=== PATIENT | male | born 1980 | race Caucasian/White ===

== ENCOUNTER 2021-06-18 11:24 | Inpatient (IN) | payer MEDICAID, OTHER ==
[2021-06-18 12:35] LABS: #Basophils 0.1 thou/uL (0.0-0.2); #Eosinphils 0.1 thou/uL (0.0-0.7); #Monocytes 0.8 thou/uL (0.11-0.59); %Basophils 0.9 % (0.0-1.0); %Eosinophils 1.2 % (0.0-10.0); %Lymphocytes 19.9 % (21.0-51.0); %Monocytes 8.3 % (0.0-10.0); %Neutrophils 69.7 % (42.0-75.0); Hemoglobin 12.9 g/dL (14.0-18.0); Mean Corpuscular Volume 84.4 fL (78.0-98.0); Mean Platelet Volume 7.8 fL (7.4-10.4); Platelet Count 340 thou/uL (130-400); RBC Distribution Width 15.6 % (11.5-14.5); Red Blood Cell (RBC) Count 4.78 mill/uL (4.70-6.10)
[2021-06-18] MEDS ORDERED: Furosemide 40 MG/4 ML VIAL ONE (12:42)
[2021-06-18 12:57] LABS: ALT (SGPT) 41 U/L (8-55); AST (SGOT) 31 U/L (5-34); Albumin 3.5 g/dL (3.5-5.0); Alkaline Phosphatase 340 U/L (40-110); Anion Gap 15 mmol/L (10-20); BUN (Urea Nitrogen) 29 mg/dL (8.9-20.6); Bilirubin, Total 1.9 mg/dL (0.2-1.2); Calc. Creatinine Clearance 0 mL/min (70-130); Calcium 9.1 mg/dL (7.8-10.44); Carbon Dioxide 29 mmol/L (22-29); Chloride 95 mmol/L (98-107); Globulin 3.9 g/dL (2.4-3.5); Glucose 113 mg/dL (70-105); Protein, Total 7.4 g/dL (6.0-8.3); Sodium 135 mmol/L (136-145)
[2021-06-18 13:20] LABS: CKMB 1.5 ng/mL (0-6.6)
[2021-06-18] MEDS ORDERED: Ondansetron PF 4 MG/2 ML Vial IVP PRN (14:24)
[2021-06-18] MEDS ORDERED: Ondansetron ODT 4 MG TAB PO PRN (14:24)
[2021-06-18] MEDS ORDERED: Acetaminophen 325 MG TAB PO PRN (14:24)
[2021-06-18] MEDS ORDERED: Senokot S 8.6-50 MG TAB PO PRN (14:24)
[2021-06-18] MEDS ORDERED: Nitroglycerin 0.4 MG TAB (25 Tab Bottle) SL PRN (14:36)
[2021-06-18 15:42] LABS: Hemoglobin A1c 5.9 % (4.0-6.0)
[2021-06-18 15:47] LABS: INR-International Normal Ratio 1.3; PTT 32.1 sec (22.9-36.1); Prothrombin Time 16.1 sec (12.0-14.7)
[2021-06-18 16:04] LABS: Magnesium 1.8 mg/dL (1.6-2.6)
[2021-06-18 16:18] LABS: CKMB 1.7 ng/mL (0-6.6)
[2021-06-18 18:53] LABS: Bacteria/HPF None Seen HPF (None Seen); Bilirubin Negative (Negative); Blood, Urine 1+ (Negative); Clarity Clear (Clear); Glucose, Urine (Dipstick) Normal (Negative); Ketone, Urine Negative (Negative); Leukocyte Negative Leu/uL (Negative); Nitrite Negative (Negative); Protein, Urine (Dipstick) 30 mg/dL (Neg-Trace); Specific Gravity, Urine 1.009 (1.002-1.036); Squamous Epithelial None Seen HPF (0-3); Urobilinogen 3 mg/dL (Less than 2); WBC/HPF 0-3 HPF (0-3); pH, Urine 6.5 (5.0-9.0)
[2021-06-18 18:59] LABS: SARS-CoV-2 NAA Rapid Test Not Detected (NotDetected)
[2021-06-18 19:00] LABS: Amphetamine Not Detected (NotDetected); Barbiturates Screen Not Detected (NotDetected); Benzodiazepine Screen Not Detected (NotDetected); Cocaine Metabolite Screen Not Detected (NotDetected); Methadone Not Detected (NotDetected); Methamphetamine Not Detected (NotDetected); Opiate Screen Not Detected (NotDetected); Oxycodone Screen Not Detected (NotDetected); Phencyclidine (PCP) Not Detected (NotDetected); THC/Cannabinoid Screen Not Detected (NotDetected); Tricyclic Screen Not Detected (NotDetected)
[2021-06-18 21:45] LABS: CKMB 1.4 ng/mL (0-6.6)
[2021-06-18] MEDS: Famotidine 20 MG TAB PO SCH (22:45)
[2021-06-19 05:13] LABS: #Basophils 0.1 thou/uL (0.0-0.2); #Eosinphils 0.1 thou/uL (0.0-0.7); #Lymphocytes 2.2 thou/uL (1.20-3.40); #Monocytes 0.9 thou/uL (0.11-0.59); #Neutrophils 6.7 thou/uL (1.40-6.50); %Basophils 0.6 % (0.0-1.0); %Eosinophils 0.8 % (0.0-10.0); %Lymphocytes 22.3 % (21.0-51.0); %Monocytes 8.8 % (0.0-10.0); %Neutrophils 67.6 % (42.0-75.0); Hemoglobin 12.3 g/dL (14.0-18.0); Mean Corpuscular Hemoglobin 27.2 pg (27.0-31.0); Platelet Count 328 thou/uL (130-400); RBC Distribution Width 15.6 % (11.5-14.5); Red Blood Cell (RBC) Count 4.53 mill/uL (4.70-6.10); White Blood Cell (WBC) Count 9.9 thou/uL (4.8-10.8)
[2021-06-19 05:27] LABS: Anion Gap 19 mmol/L (10-20); BUN (Urea Nitrogen) 26 mg/dL (8.9-20.6); Calc. Creatinine Clearance 79 mL/min (70-130); Carbon Dioxide 26 mmol/L (22-29); Cardiac Risk 3.5 (Less than 4.5); Chloride 94 mmol/L (98-107); Cholesterol 116 mg/dl (< 200 Desired); Glucose 96 mg/dL (70-105); HDL Cholesterol 33 mg/dL (>60 Neg Risk); LDL Cholesterol, Calculated 69 mg/dL; Potassium 4.4 mmol/L (3.5-5.1); Sodium 135 mmol/L (136-145); Triglycerides 71 mg/dL (Less than 150)
[2021-06-19] MEDS ORDERED: Furosemide 40 MG/4 ML VIAL SLOW IVP SCH (06:00)
[2021-06-19] MEDS: Furosemide 40 MG/4 ML VIAL SLOW IVP SCH ×2 (06:02→15:08)
[2021-06-19] MEDS ORDERED: Carvedilol 3.125 MG TAB PO SCH ×2 (08:00→09:00)
[2021-06-19] MEDS: Enoxaparin Sodium 40 MG/0.4 ML SYRINGE SC SCH (09:16)
[2021-06-19] MEDS: Famotidine 20 MG TAB PO SCH ×2 (09:16→20:15)
[2021-06-19] MEDS: Carvedilol 3.125 MG TAB PO SCH (17:25)
[2021-06-20] MEDS: Furosemide 40 MG/4 ML VIAL SLOW IVP SCH ×2 (06:15→14:31)
[2021-06-20] MEDS: Famotidine 20 MG TAB PO SCH ×2 (08:48→20:42)
[2021-06-20] MEDS: Enoxaparin Sodium 40 MG/0.4 ML SYRINGE SC SCH (08:49)
[2021-06-20] MEDS: Carvedilol 3.125 MG TAB PO SCH ×2 (08:49→17:16)
[2021-06-20 10:08] LABS: Anion Gap 17 mmol/L (10-20); BUN (Urea Nitrogen) 34 mg/dL (8.9-20.6); Calc. Creatinine Clearance 75 mL/min (70-130); Calcium 9.2 mg/dL (7.8-10.44); Carbon Dioxide 29 mmol/L (22-29); Chloride 95 mmol/L (98-107); Glucose 97 mg/dL (70-105); Potassium 4.1 mmol/L (3.5-5.1); Sodium 137 mmol/L (136-145)
[2021-06-21 06:07] LABS: Anion Gap 16 mmol/L (10-20); BUN (Urea Nitrogen) 30 mg/dL (8.9-20.6); Calc. Creatinine Clearance 81 mL/min (70-130); Calcium 8.8 mg/dL (7.8-10.44); Carbon Dioxide 29 mmol/L (22-29); Chloride 95 mmol/L (98-107); Glucose 101 mg/dL (70-105); Potassium 4.1 mmol/L (3.5-5.1); Sodium 136 mmol/L (136-145)
[2021-06-21] MEDS: Furosemide 40 MG/4 ML VIAL SLOW IVP SCH ×2 (06:08→13:53)
[2021-06-21] MEDS: Carvedilol 3.125 MG TAB PO SCH ×2 (09:31→17:02)
[2021-06-21] MEDS: Famotidine 20 MG TAB PO SCH ×2 (09:32→21:01)
[2021-06-21] MEDS: Enoxaparin Sodium 40 MG/0.4 ML SYRINGE SC SCH (09:32)
[2021-06-22 05:24] LABS: Anion Gap 15 mmol/L (10-20); BUN (Urea Nitrogen) 29 mg/dL (8.9-20.6); Calc. Creatinine Clearance 89 mL/min (70-130); Calcium 8.9 mg/dL (7.8-10.44); Carbon Dioxide 30 mmol/L (22-29); Chloride 93 mmol/L (98-107); Glucose 103 mg/dL (70-105); Sodium 134 mmol/L (136-145)
[2021-06-22] MEDS: Furosemide 40 MG/4 ML VIAL SLOW IVP SCH ×2 (05:56→14:30)
[2021-06-22] MEDS: Enoxaparin Sodium 40 MG/0.4 ML SYRINGE SC SCH (08:13)
[2021-06-22] MEDS: Carvedilol 3.125 MG TAB PO SCH ×2 (08:13→17:30)
[2021-06-22] MEDS: Famotidine 20 MG TAB PO SCH ×2 (08:13→21:21)
[2021-06-22 09:24] LABS: Magnesium 1.8 mg/dL (1.6-2.6)
[2021-06-22] MEDS ORDERED: Metolazone 5 MG TAB PO SCH (14:00)
[2021-06-22] MEDS ORDERED: Electrolyte Replacement Protocol 1 EACH FS SCH (17:15)
[2021-06-22] MEDS ORDERED: Magnesium Sulfate 2 GM in Sodium Chloride 0.9% 100 ML IVPB SCH (17:15)
[2021-06-23 05:34] LABS: Phosphorus 4.2 mg/dL (2.3-4.7)
[2021-06-23 05:37] LABS: Anion Gap 14 mmol/L (10-20); BUN (Urea Nitrogen) 27 mg/dL (8.9-20.6); Calc. Creatinine Clearance 92 mL/min (70-130); Calcium 8.9 mg/dL (7.8-10.44); Carbon Dioxide 30 mmol/L (22-29); Chloride 92 mmol/L (98-107); Glucose 95 mg/dL (70-105); Potassium 3.9 mmol/L (3.5-5.1); Sodium 132 mmol/L (136-145)
[2021-06-23] MEDS: Furosemide 40 MG/4 ML VIAL SLOW IVP SCH ×2 (06:18→14:38)
[2021-06-23] MEDS: Famotidine 20 MG TAB PO SCH ×2 (08:11→23:23)
[2021-06-23] MEDS: Aspirin 81 mg Enteric Coated Tablet PO SCH (08:11)
[2021-06-23] MEDS: Carvedilol 3.125 MG TAB PO SCH ×2 (08:11→17:30)
[2021-06-23] MEDS: Enoxaparin Sodium 40 MG/0.4 ML SYRINGE SC SCH (08:11)
[2021-06-23] MEDS ORDERED: Famotidine 20 MG TAB PO SCH (09:00)
[2021-06-23] MEDS ORDERED: Magnesium 2 GM/50 ML 2 GM in Premix Bag 1 BAG IVPB SCH (09:00)
[2021-06-24 05:23] LABS: Anion Gap 15 mmol/L (10-20); BUN (Urea Nitrogen) 25 mg/dL (8.9-20.6); Calc. Creatinine Clearance 95 mL/min (70-130); Calcium 9.2 mg/dL (7.8-10.44); Carbon Dioxide 32 mmol/L (22-29); Chloride 93 mmol/L (98-107); Glucose 95 mg/dL (70-105); Magnesium 2.1 mg/dL (1.6-2.6); Potassium 3.8 mmol/L (3.5-5.1); Sodium 136 mmol/L (136-145)
[2021-06-24] MEDS: Furosemide 40 MG/4 ML VIAL SLOW IVP SCH ×2 (06:05→14:27)
[2021-06-24] MEDS: Enoxaparin Sodium 40 MG/0.4 ML SYRINGE SC SCH (07:39)
[2021-06-24] MEDS: Famotidine 20 MG TAB PO SCH ×2 (07:39→22:08)
[2021-06-24] MEDS: Aspirin 81 mg Enteric Coated Tablet PO SCH (07:40)
[2021-06-24] MEDS: Carvedilol 3.125 MG TAB PO SCH ×2 (07:40→17:11)
[2021-06-24] MEDS ORDERED: Furosemide 40 MG/4 ML VIAL SLOW IVP SCH (20:00)
[2021-06-25] MEDS: Furosemide 40 MG/4 ML VIAL SLOW IVP SCH (05:05)
[2021-06-25 06:04] LABS: Anion Gap 15 mmol/L (10-20); BUN (Urea Nitrogen) 26 mg/dL (8.9-20.6); Calc. Creatinine Clearance 82 mL/min (70-130); Calcium 9.5 mg/dL (7.8-10.44); Carbon Dioxide 35 mmol/L (22-29); Chloride 93 mmol/L (98-107); Glucose 87 mg/dL (70-105); Magnesium 2.2 mg/dL (1.6-2.6); Potassium 3.7 mmol/L (3.5-5.1); Sodium 139 mmol/L (136-145)
[2021-06-25] MEDS: Enoxaparin Sodium 40 MG/0.4 ML SYRINGE SC SCH (10:42)
[2021-06-25] MEDS: Famotidine 20 MG TAB PO SCH ×2 (10:43→20:52)
[2021-06-25] MEDS: Carvedilol 3.125 MG TAB PO SCH ×2 (10:43→17:10)
[2021-06-25] MEDS: Aspirin 81 mg Enteric Coated Tablet PO SCH (10:43)
[2021-06-25] MEDS ORDERED: Potassium Chloride 20 MEQ TAB PO SCH (12:00)
[2021-06-25] MEDS ORDERED: Furosemide 40 MG/4 ML VIAL SLOW IVP SCH (20:00)
[2021-06-26 05:15] LABS: Anion Gap 14 mmol/L (10-20); BUN (Urea Nitrogen) 27 mg/dL (8.9-20.6); Calc. Creatinine Clearance 85 mL/min (70-130); Calcium 8.9 mg/dL (7.8-10.44); Carbon Dioxide 34 mmol/L (22-29); Chloride 95 mmol/L (98-107); Glucose 102 mg/dL (70-105); Sodium 139 mmol/L (136-145)
[2021-06-26] MEDS ORDERED: Magnesium 2 GM/50 ML 2 GM in Premix Bag 1 BAG IVPB SCH (07:00)
[2021-06-26] MEDS: Enoxaparin Sodium 40 MG/0.4 ML SYRINGE SC SCH (08:19)
[2021-06-26] MEDS: Famotidine 20 MG TAB PO SCH ×2 (08:19→20:31)
[2021-06-26] MEDS: Carvedilol 3.125 MG TAB PO SCH ×2 (08:19→16:52)
[2021-06-26] MEDS: Aspirin 81 mg Enteric Coated Tablet PO SCH (08:19)
[2021-06-26] MEDS ORDERED: Furosemide 20 MG/2 ML VIAL SLOW IVP SCH (09:00)
[2021-06-26] MEDS ORDERED: Potassium Chloride 20 MEQ TAB PO SCH (18:00)
[2021-06-26] MEDS ORDERED: Furosemide 40 MG/4 ML VIAL SLOW IVP SCH (18:00)
[2021-06-27 05:07] LABS: Anion Gap 12 mmol/L (10-20); BUN (Urea Nitrogen) 23 mg/dL (8.9-20.6); Calc. Creatinine Clearance 93 mL/min (70-130); Calcium 9.2 mg/dL (7.8-10.44); Carbon Dioxide 33 mmol/L (22-29); Chloride 97 mmol/L (98-107); Glucose 91 mg/dL (70-105); Magnesium 2.3 mg/dL (1.6-2.6); Potassium 4.4 mmol/L (3.5-5.1); Sodium 138 mmol/L (136-145)
[2021-06-27] MEDS: Furosemide 40 MG/4 ML VIAL SLOW IVP SCH ×2 (05:16→13:59)
[2021-06-27] MEDS: Enoxaparin Sodium 40 MG/0.4 ML SYRINGE SC SCH (08:41)
[2021-06-27] MEDS: Aspirin 81 mg Enteric Coated Tablet PO SCH (08:42)
[2021-06-27] MEDS: Famotidine 20 MG TAB PO SCH ×2 (08:42→21:19)
[2021-06-27] MEDS: Carvedilol 3.125 MG TAB PO SCH ×2 (08:42→17:39)
[2021-06-27 11:08] VITALS: BMI 27.3
[2021-06-27 12:04] LABS: SARS-CoV-2 PCR by NAA Not Detected (NotDetected)
[2021-06-27] MEDS ORDERED: Potassium Chloride 20 MEQ TAB PO SCH (18:00)
[2021-06-27] MEDS ORDERED: Furosemide 40 MG/4 ML VIAL SLOW IVP SCH (20:00)
[2021-06-28 05:09] LABS: BUN (Urea Nitrogen) 23 mg/dL (8.9-20.6); Calc. Creatinine Clearance 80 mL/min (70-130); Calcium 9.7 mg/dL (7.8-10.44); Glucose 83 mg/dL (70-105)
[2021-06-28 05:18] LABS: Anion Gap 17 mmol/L (10-20); Carbon Dioxide 31 mmol/L (22-29); Chloride 96 mmol/L (98-107); Potassium 4.5 mmol/L (3.5-5.1); Sodium 139 mmol/L (136-145)
[2021-06-28] MEDS: Furosemide 40 MG/4 ML VIAL SLOW IVP SCH ×2 (06:19→13:58)
[2021-06-28] MEDS: Carvedilol 3.125 MG TAB PO SCH ×2 (08:32→16:23)
[2021-06-28] MEDS: Enoxaparin Sodium 40 MG/0.4 ML SYRINGE SC SCH (08:32)
[2021-06-28] MEDS: Famotidine 20 MG TAB PO SCH ×2 (08:32→20:36)
[2021-06-28] MEDS: Aspirin 81 mg Enteric Coated Tablet PO SCH (08:32)
[2021-06-28] MEDS: Potassium Chloride 20 MEQ TAB PO SCH (16:22)
[2021-06-28] MEDS ORDERED: Furosemide 20 MG/2 ML VIAL SLOW IVP SCH (20:00)
[2021-06-29] MEDS: Furosemide 40 MG/4 ML VIAL SLOW IVP SCH ×2 (05:28→14:44)
[2021-06-29 05:37] LABS: Anion Gap 14 mmol/L (10-20); BUN (Urea Nitrogen) 27 mg/dL (8.9-20.6); Calc. Creatinine Clearance 81 mL/min (70-130); Calcium 9.8 mg/dL (7.8-10.44); Carbon Dioxide 33 mmol/L (22-29); Chloride 96 mmol/L (98-107); Glucose 102 mg/dL (70-105); Potassium 4.3 mmol/L (3.5-5.1); Sodium 139 mmol/L (136-145)
[2021-06-29] MEDS: Enoxaparin Sodium 40 MG/0.4 ML SYRINGE SC SCH (08:55)
[2021-06-29] MEDS: Famotidine 20 MG TAB PO SCH ×2 (08:55→20:27)
[2021-06-29] MEDS: Aspirin 81 mg Enteric Coated Tablet PO SCH (08:55)
[2021-06-29] MEDS: Potassium Chloride 20 MEQ TAB PO SCH ×2 (08:55→17:37)
[2021-06-29] MEDS: Empagliflozin 10 MG TAB PO SCH (08:56)
[2021-06-29] MEDS: Carvedilol 3.125 MG TAB PO SCH ×2 (12:06→17:37)
[2021-06-30 05:10] LABS: Anion Gap 15 mmol/L (10-20); BUN (Urea Nitrogen) 28 mg/dL (8.9-20.6); Calc. Creatinine Clearance 80 mL/min (70-130); Calcium 9.3 mg/dL (7.8-10.44); Carbon Dioxide 32 mmol/L (22-29); Chloride 96 mmol/L (98-107); Glucose 82 mg/dL (70-105); Potassium 4.2 mmol/L (3.5-5.1); Sodium 139 mmol/L (136-145)
[2021-06-30] MEDS: Furosemide 40 MG/4 ML VIAL SLOW IVP SCH ×2 (05:17→13:44)
[2021-06-30] MEDS: Enoxaparin Sodium 40 MG/0.4 ML SYRINGE SC SCH (07:54)
[2021-06-30] MEDS: Carvedilol 3.125 MG TAB PO SCH ×2 (07:55→16:46)
[2021-06-30] MEDS: Empagliflozin 10 MG TAB PO SCH (07:55)
[2021-06-30] MEDS: Potassium Chloride 20 MEQ TAB PO SCH ×2 (07:56→16:30)
[2021-06-30] MEDS: Famotidine 20 MG TAB PO SCH ×2 (07:56→22:02)
[2021-06-30] MEDS: Aspirin 81 mg Enteric Coated Tablet PO SCH (07:56)
[2021-06-30 10:30] LABS: HIV (1/2) Antibody/Antigen Non-Reactive (NonReactive); HIV 1/2 INDEX 0.13 S/CO (<1.00)
[2021-07-01] MEDS: Furosemide 40 MG/4 ML VIAL SLOW IVP SCH (05:30)
[2021-07-01 05:49] LABS: Anion Gap 12 mmol/L (10-20); BUN (Urea Nitrogen) 32 mg/dL (8.9-20.6); Calc. Creatinine Clearance 85 mL/min (70-130); Calcium 9.4 mg/dL (7.8-10.44); Carbon Dioxide 31 mmol/L (22-29); Chloride 99 mmol/L (98-107); Glucose 93 mg/dL (70-105); Potassium 4.2 mmol/L (3.5-5.1); Sodium 138 mmol/L (136-145)
[2021-07-01] MEDS: Carvedilol 3.125 MG TAB PO SCH ×2 (07:02→16:31)
[2021-07-01] MEDS: Aspirin 81 mg Enteric Coated Tablet PO SCH (07:02)
[2021-07-01] MEDS: Famotidine 20 MG TAB PO SCH ×2 (07:03→21:23)
[2021-07-01] MEDS: Empagliflozin 10 MG TAB PO SCH (09:57)
[2021-07-01] MEDS: Potassium Chloride 20 MEQ TAB PO SCH ×2 (09:58→16:31)
[2021-07-01] MEDS ORDERED: Enoxaparin Sodium 40 MG/0.4 ML SYRINGE SC SCH (10:00)
[2021-07-01] MEDS ORDERED: Furosemide 40 MG/4 ML VIAL SLOW IVP SCH ×2 (14:00→20:00)
[2021-07-01] MEDS ORDERED: Potassium Chloride 20 MEQ TAB PO SCH (20:00)
[2021-07-02 05:29] LABS: Anion Gap 14 mmol/L (10-20); BUN (Urea Nitrogen) 36 mg/dL (8.9-20.6); Calc. Creatinine Clearance 71 mL/min (70-130); Calcium 9.6 mg/dL (7.8-10.44); Carbon Dioxide 31 mmol/L (22-29); Chloride 97 mmol/L (98-107); Glucose 97 mg/dL (70-105); Potassium 4.1 mmol/L (3.5-5.1); Sodium 138 mmol/L (136-145)
[2021-07-02] MEDS: Carvedilol 3.125 MG TAB PO SCH ×2 (06:40→16:13)
[2021-07-02] MEDS: Famotidine 20 MG TAB PO SCH ×2 (06:40→20:45)
[2021-07-02] MEDS: Aspirin 81 mg Enteric Coated Tablet PO SCH (07:14)
[2021-07-02] MEDS: Empagliflozin 10 MG TAB PO SCH (09:43)
[2021-07-02] MEDS: Potassium Chloride 20 MEQ TAB PO SCH (09:43)
[2021-07-02] MEDS: Enoxaparin Sodium 40 MG/0.4 ML SYRINGE SC SCH (09:44)
[2021-07-02] MEDS: Furosemide 40 MG TAB PO SCH (14:51)
[2021-07-02] MEDS: Sacubitril 49 MG/Valsartan 51 MG TABLET PO SCH (20:45)
[2021-07-03 05:44] LABS: #Basophils 0.1 thou/uL (0.0-0.2); #Eosinphils 0.2 thou/uL (0.0-0.7); #Lymphocytes 3.2 thou/uL (1.20-3.40); #Monocytes 0.9 thou/uL (0.11-0.59); #Neutrophils 3.5 thou/uL (1.40-6.50); %Basophils 0.9 % (0.0-1.0); %Eosinophils 2.2 % (0.0-10.0); %Lymphocytes 41.1 % (21.0-51.0); %Monocytes 11.4 % (0.0-10.0); %Neutrophils 44.3 % (42.0-75.0); Hemoglobin 14.1 g/dL (14.0-18.0); Mean Corpuscular Hemoglobin 26.4 pg (27.0-31.0); Mean Platelet Volume 7.5 fL (7.4-10.4); Platelet Count 298 thou/uL (130-400); RBC Distribution Width 15.8 % (11.5-14.5); Red Blood Cell (RBC) Count 5.35 mill/uL (4.70-6.10); White Blood Cell (WBC) Count 7.9 thou/uL (4.8-10.8)
[2021-07-03 06:38] LABS: Anion Gap 12 mmol/L (10-20); BUN (Urea Nitrogen) 37 mg/dL (8.9-20.6); Calc. Creatinine Clearance 84 mL/min (70-130); Calcium 9.8 mg/dL (7.8-10.44); Carbon Dioxide 32 mmol/L (22-29); Chloride 96 mmol/L (98-107); Glucose 93 mg/dL (70-105); Potassium 4.2 mmol/L (3.5-5.1); Sodium 136 mmol/L (136-145)
[2021-07-03 06:53] LABS: Thyroid Stimulating Hormone 1.3704 uIU/mL (0.35-4.94)
[2021-07-03] MEDS ORDERED: Potassium Chloride 20 MEQ TAB PO SCH (08:00)
[2021-07-03] MEDS: Carvedilol 3.125 MG TAB PO SCH (08:30)
[2021-07-03] MEDS: Sacubitril 49 MG/Valsartan 51 MG TABLET PO SCH (08:30)
[2021-07-03] MEDS: Aspirin 81 mg Enteric Coated Tablet PO SCH (08:30)
[2021-07-03] MEDS: Enoxaparin Sodium 40 MG/0.4 ML SYRINGE SC SCH (08:31)
[2021-07-03] MEDS: Empagliflozin 10 MG TAB PO SCH (08:31)
[2021-07-03] MEDS: Famotidine 20 MG TAB PO SCH (08:31)
[2021-07-03] MEDS: Furosemide 40 MG TAB PO SCH ×2 (08:31→14:59)
[2021-07-03 14:05] VITALS: BP 116/68; TEMP 97.9
== END 2021-07-03 16:28 | disposition home or self-care (01) | DRG 292 ==
LOC: ERS 11:24 → ERHOLD 13:58 → 2NO 19:23
PROVIDERS: ADMIT Family Medicine; ATTEND Hospitalist
DX: I50.23 Acute on chronic systolic (congestive) heart failure (principal); N17.9 Acute kidney failure, unspecified; F84.0 Autistic disorder; E87.1 Hypo-osmolality and hyponatremia; I42.9 Cardiomyopathy, unspecified; Z20.822 Contact with and (suspected) exposure to COVID-19; I44.7 Left bundle-branch block, unspecified; E80.6 Other disorders of bilirubin metabolism; R73.9 Hyperglycemia, unspecified; N18.30 Chronic kidney disease, stage 3 unspecified; R77.8 Other specified abnormalities of plasma proteins; I08.1 Rheumatic disorders of both mitral and tricuspid valves; D63.1 Anemia in chronic kidney disease; R73.02 Impaired glucose tolerance (oral); E66.9 Obesity, unspecified; D53.9 Nutritional anemia, unspecified; Z53.8 Procedure and treatment not carried out for other reasons; E83.42 Hypomagnesemia; Z82.49 Family history of ischemic heart disease and other diseases of the circulatory system; Z68.32 Body mass index [BMI] 32.0-32.9, adult
CPT/HCPCS: 36415; 71045; 76700; 76770; 80048; 80053; 80061; 80306; 80307; 81001; 82553; 83036; 83735; 83880; 84100; 84300; 84443; 84479; 84484; 85025; 85610; 85730; 87389; 93005; 93306; 96374; J1650; J1940; J3475; J3490; U0002; U0003; U0005

== ENCOUNTER 2021-10-23 13:37 | Outpatient (CLI) | payer OTHER ==
[2021-10-23 14:14] LABS: #Basophils 0.1 10x3/uL (0.0-0.2); #Eosinphils 0.1 10x3/uL (0.0-0.5); #Monocytes 0.7 10x3/uL (0.0-1.1); #Neutrophils 4.4 10x3/uL (1.5-8.4); %Basophils 0.7 % (0.0-2.0); %Eosinophils 1.6 % (0.0-6.0); %Lymphocytes 36.7 % (18.0-47.0); %Monocytes 7.9 % (0.0-10.0); %Neutrophils 52.7 % (40.0-75.0); Hemoglobin 14.4 g/dL (13.5-17.5); Mean Corpuscular HGB CONC 32.9 g/dL (32.0-36.0); Mean Corpuscular Hemoglobin 28.7 pg (27.0-33.0); Mean Corpuscular Volume 87.4 fl (81.2-95.1); Mean Platelet Volume 9.8 fl (7.4-10.4); Platelet Count 237 10x3/uL (150-450); RBC Distribution Width 18.9 % (11.5-14.5); Red Blood Cell (RBC) Count 5.01 10x6/uL (4.32-5.72); White Blood Cell (WBC) Count 8.3 10x3/uL (3.5-10.5)
[2021-10-23 14:48] LABS: ALT (SGPT) 34 U/L (8-55); AST (SGOT) 22 U/L (5-34); Albumin 4.3 g/dL (3.5-5.0); Alkaline Phosphatase 84 U/L (40-110); Anion Gap 17 mmol/L (10-20); BUN (Urea Nitrogen) 27 mg/dL (8.9-20.6); Bilirubin, Total 0.7 mg/dL (0.2-1.2); Calc. Creatinine Clearance 0 mL/min (70-130); Calcium 9.4 mg/dL (7.8-10.44); Carbon Dioxide 27 mmol/L (22-29); Chloride 101 mmol/L (98-107); Globulin 3.2 g/dL (2.4-3.5); Glucose 96 mg/dL (70-105); Potassium 4.6 mmol/L (3.5-5.1); Protein, Total 7.5 g/dL (6.0-8.3); Sodium 140 mmol/L (136-145)
[2021-10-23 22:06] LABS: SARS-CoV-2 PCR by NAA Not Detected (NotDetected)
== END 2021-10-23 13:38 | disposition home or self-care (01) ==
LOC: LABBT 13:37
PROVIDERS: ATTEND Internal Medicine Cardiovascular Disease
DX: Z01.812 Encounter for preprocedural laboratory examination (principal); I42.9 Cardiomyopathy, unspecified; Z20.822 Contact with and (suspected) exposure to COVID-19
CPT/HCPCS: 80053; 85025; U0003; U0005

== ENCOUNTER 2021-10-28 06:04 | Day surgery (SDC) | payer OTHER ==
[2021-10-22 11:06] VITALS: BMI 27.4
[2021-10-28] MEDS ORDERED: Lidocaine 1% (PF) 30 ML VIAL ONE (06:24)
[2021-10-28] MEDS ORDERED: Midazolam HCl 2 mg/2 ml Vial ONE (07:12)
[2021-10-28] MEDS ORDERED: Nitroglycerin 100MG/250ML BOT 250 ML ONE (07:31)
[2021-10-28] MEDS ORDERED: Iopamidol 370 76% 100 ML VIAL ONE (10:23)
== END 2021-10-28 12:55 | disposition home or self-care (01) ==
LOC: SDC 06:04
PROVIDERS: ATTEND Internal Medicine Cardiovascular Disease
PROC: B2111ZZ Fluoroscopy of Multiple Coronary Arteries using Low Osmolar Contrast (ICD-10-PCS; principal; 2021-10-28)
PROC: 4A023N7 Measurement of Cardiac Sampling and Pressure, Left Heart, Percutaneous Approach (ICD-10-PCS; principal; 2021-10-28)
DX: I42.8 Other cardiomyopathies (principal); I50.22 Chronic systolic (congestive) heart failure; I44.7 Left bundle-branch block, unspecified; N18.32 Chronic kidney disease, stage 3b; I47.2 Ventricular tachycardia; Z79.82 Long term (current) use of aspirin; Z79.899 Other long term (current) drug therapy
CPT/HCPCS: 93458; 99152; J2001; J2250; Q9967

== ENCOUNTER 2021-12-17 09:50 | Day surgery (SDC) | payer OTHER ==
[2021-12-12 12:26] VITALS: BMI 23.1
[~2021-12-17 09:50] MED LIST: Iopamidol 370 76% 50 ML VIAL FS ONE
[2021-12-17] MEDS ORDERED: Vancomycin 1.5 GRAM/300 ML BAG ONE (10:26)
[2021-12-17] MEDS ORDERED: Lidocaine 1% (PF) 30 ML VIAL ONE (10:53)
[2021-12-17] MEDS ORDERED: CEFAZOLIN 1 GM VIAL ONE (10:53)
[2021-12-17] MEDS ORDERED: Clindamycin/D5W 600 mg/50 ml Premix Bag ONE (10:53)
[2021-12-17 11:07] LABS: #Eosinphils 0.1 thou/uL (0.0-0.7); #Lymphocytes 1.6 thou/uL (1.20-3.40); #Monocytes 0.5 thou/uL (0.11-0.59); #Neutrophils 4.5 thou/uL (1.40-6.50); %Basophils 0.5 % (0.0-1.0); %Lymphocytes 24.6 % (21.0-51.0); %Monocytes 6.8 % (0.0-10.0); %Neutrophils 67.1 % (42.0-75.0); Hemoglobin 15.7 g/dL (14.0-18.0); Mean Corpuscular HGB CONC 32.4 g/dL (32.0-36.0); Mean Corpuscular Hemoglobin 30.8 pg (27.0-31.0); Mean Corpuscular Volume 95.1 fL (78.0-98.0); Mean Platelet Volume 7.3 fL (7.4-10.4); Platelet Count 204 thou/uL (130-400); RBC Distribution Width 11.9 % (11.5-14.5); Red Blood Cell (RBC) Count 5.12 mill/uL (4.70-6.10); White Blood Cell (WBC) Count 6.7 thou/uL (4.8-10.8)
[2021-12-17 11:20] LABS: INR-International Normal Ratio 1.2; Prothrombin Time 14.8 sec (12.0-14.7)
[2021-12-17 11:21] LABS: PTT 35.5 sec (22.9-36.1)
[2021-12-17 11:27] LABS: Anion Gap 12 mmol/L (10-20); BUN (Urea Nitrogen) 18 mg/dL (8.9-20.6); Calc. Creatinine Clearance 83 mL/min (70-130); Calcium 9.5 mg/dL (7.8-10.44); Carbon Dioxide 32 mmol/L (22-29); Chloride 97 mmol/L (98-107); Glucose 87 mg/dL (70-105); Potassium 4.3 mmol/L (3.5-5.1); Sodium 137 mmol/L (136-145)
[2021-12-17] MEDS ORDERED: Ketamine 50 MG/ML (10ML VIAL) ONE (11:38)
[2021-12-17] MEDS ORDERED: Midazolam HCl 2 mg/2 ml Vial ONE (11:39)
[2021-12-17] MEDS ORDERED: ePHEDrine 50 MG/ML VIAL ONE (11:51)
[2021-12-17] MEDS ORDERED: PROPOFOL 200 MG/20 ML VIAL ONE (11:51)
[2021-12-17] MEDS ORDERED: Lidocaine 1% PF 5 ML VIAL ONE (11:51)
[2021-12-17 11:58] LABS: SARS-CoV-2 NAA Rapid Test Not Detected (NotDetected)
[2021-12-17] MEDS ORDERED: PROPOFOL 40 ML ONE (12:56)
[2021-12-17] MEDS ORDERED: HYDROcodone/Acetaminophen 5/325 mg Tablet ONE (15:57)
== END 2021-12-17 18:38 | disposition home or self-care (01) ==
LOC: SDC 09:50
PROVIDERS: ATTEND Internal Medicine Cardiovascular Disease
PROC: 3E0102A Introduction of Anti-Infective Envelope into Subcutaneous Tissue, Open Approach (ICD-10-PCS; principal; 2021-12-17)
PROC: 02HK3KZ Insertion of Defibrillator Lead into Right Ventricle, Percutaneous Approach (ICD-10-PCS; principal; 2021-12-17)
PROC: 02HL3KZ Insertion of Defibrillator Lead into Left Ventricle, Percutaneous Approach (ICD-10-PCS; principal; 2021-12-17)
PROC: 0JH609Z Insertion of Cardiac Resynchronization Defibrillator Pulse Generator into Chest Subcutaneous Tissue and Fascia, Open Approach (ICD-10-PCS; principal; 2021-12-17)
PROC: 02H63KZ Insertion of Defibrillator Lead into Right Atrium, Percutaneous Approach (ICD-10-PCS; principal; 2021-12-17)
DX: I42.8 Other cardiomyopathies (principal); I50.22 Chronic systolic (congestive) heart failure; I44.7 Left bundle-branch block, unspecified; I47.2 Ventricular tachycardia; Z79.82 Long term (current) use of aspirin; Z79.899 Other long term (current) drug therapy; Z20.822 Contact with and (suspected) exposure to COVID-19
CPT/HCPCS: 33225; 33249; 71045; 80048; 85025; 85610; 85730; 93005; C1763; C1769; C1898; C1900; J0690; J2001; J2250; J2704; J3370; J3490; Q9967; U0002